=== PATIENT | female | born 1960 | race African-American/Black ===

== ENCOUNTER → 2021-06-18 | Day surgery (SDC) | payer OTHER ==
[~2021-06-18] VITALS: Ht 162.6 cm; Wt 98.0 kg
[~2021-06-18] MED LIST: ADVAIR 250/5028 PUFF INH; AMLODIPINE BESYL5 MG PO; CYCLOBENZAPRINE10 MG PO; ECHINACEA65 MG PO; FAMOTIDINE40 MG PO; HCTZ25 MG PO; LOVAZA1 GM PO; METOPROLOL SUCC50 MG PO; MONTELUKAST SOD10 MG PO; ROSUVASTATIN CA10 MG PO; SERTRALINE HCL25 MG PO; SYMBICORT 16010.2 GM INH; VITAMIN D21250 MCG PO; ZINC10 MG PO
[2021-06-18 13:53] LABS: HCT 40.6 % (37.0-47.0); HGB 13.9 g/dl (12.5-16.0); MCHC 34.2 g/dL (32.0-36.0); MCV 87.7 fL (78.0-100.0); MPV 10.7 fL (6.0-9.5); RBC 4.63 M/uL (4.20-5.40); RDW 16.2 % (11.5-14.0); WBC 6.1 K/uL (4.0-10.5)
[2021-06-18 14:10] LABS: BUN/CREAT RATIO (CALC) 15.7 RATIO; CREATININE 1.02 mg/dL (0.51-0.95); POTASSIUM 3.6 mmol/L (3.5-5.1)
== END | disposition home or self-care (01) ==
LOC: FAS 13:04
PROVIDERS: Anesthesiology
DX: G56.01 Carpal tunnel syndrome, right upper limb (principal); G56.21 Lesion of ulnar nerve, right upper limb; I10 Essential (primary) hypertension; E78.00 Pure hypercholesterolemia, unspecified; J45.909 Unspecified asthma, uncomplicated; K21.9 Gastro-esophageal reflux disease without esophagitis; Z88.1 Allergy status to other antibiotic agents; Z79.899 Other long term (current) drug therapy
CPT/HCPCS: 36415; 80048; 93005; J7120